=== PATIENT | female | born 1955 | race Caucasian/White ===

== ENCOUNTER 2019-03-07 16:12 | Inpatient (IN) | payer MEDICARE ==
--- NOTE | 2019-03-07 16:40 | ED ---
General Adult HPI - General Chief complaint: Chest Pain Stated complaint: Chest pain Time Seen by Provider: 03/07/19 16:17 Source: patient, RN/MD, EMS, RN notes reviewed, old records reviewed (Review chart and lab work and EKG from [facility].) Mode of arrival: EMS Limitations: no limitations - History of Present Illness Initial comments: Patient is a pleasant 63-year-old female presenting to the emergency Department with complaints of chest discomfort. Onset of symptoms was earlier today while doing laundry. Patient states discomfort was somewhat severe. Discomfort felt like pressure with radiation up towards the neck. Patient did feel short of breath. Symptoms have improved. No dyspnea at this time. Discomfort is currently mild rated 4/10. No associated nausea or diaphoresis. Patient did have similar symptoms once several years ago and was told it was related to having some water around her heart and was given water pills. No leg pain or leg swelling. Patient was given aspirin and nitroglycerin and morphine. - Related Data Home Medications Medication Instructions Recorded Confirmed Ascorbic Acid [Vitamin C] 500 mg PO DAILY 03/07/19 03/07/19 Calcium Carbonate [Calcium] 600 mg PO DAILY 03/07/19 03/07/19 Cholecalciferol (Vitamin D3) 2,000 unit PO DAILY 03/07/19 03/07/19 [Vitamin D3] Cyanocobalamin (Vitamin B-12) 1,000 mcg PO DAILY 03/07/19 03/07/19 [Vitamin B-12] FLUoxetine HCL 40 mg PO HS 03/07/19 03/07/19 Ferrous Sulfate [Feosol] 325 mg PO DAILY 03/07/19 03/07/19 Lisinopril [Prinivil] 5 mg PO DAILY 03/07/19 03/07/19 Lovastatin [Mevacor] 10 mg PO HS 03/07/19 03/07/19 Pantoprazole [Protonix] 40 mg PO DAILY 03/07/19 03/07/19 Warfarin Sodium [Coumadin] 4 mg PO SUTUTHSA 03/07/19 03/07/19 Warfarin [Coumadin] 3 mg PO MOWEFR 03/07/19 03/07/19 Allergies Allergy/AdvReac Type Severity Reaction Status Date / Time No Known Allergies Allergy Verified 03/07/19 16:39 Review of Systems ROS Statement: Those systems with pertinent positive or pertinent negative responses have been documented in the HPI. ROS Other: All systems not noted in ROS Statement are negative. Constitutional: Denies: fever Eyes: Denies: eye pain ENT: Denies: ear pain Respiratory: Denies: cough Cardiovascular: Reports: chest pain Endocrine: Denies: fatigue Gastrointestinal: Denies: abdominal pain Genitourinary: Denies: dysuria Musculoskeletal: Denies: back pain Skin: Denies: rash Neurological: Denies: weakness Past Medical History Past Medical History: GERD/Reflux, Hyperlipidemia, Hypertension Additional Past Medical History / Comment(s): PE History of Any Multi-Drug Resistant Organisms: None Reported Past Surgical History: Bariatric Surgery, Hysterectomy Additional Past Surgical History / Comment(s): gastric bypass Past Psychological History: No Psychological Hx Reported Smoking Status: Never smoker Past Alcohol Use History: None Reported Past Drug Use History: None Reported General Exam Limitations: no limitations General appearance: alert, in no apparent distress Head exam: Present: atraumatic Eye exam: Present: normal appearance, PERRL ENT exam: Present: normal oropharynx Neck exam: Present: normal inspection Respiratory exam: Present: normal lung sounds bilaterally. Absent: chest wall tenderness Cardiovascular Exam: Present: regular rate, normal rhythm Expanded Peripheral pulses: 2+: Radial (R), Radial (L), Posterior Tibialis (R), Posterior Tibialis (L) GI/Abdominal exam: Present: soft. Absent: distended, tenderness Extremities exam: Present: normal inspection. Absent: pedal edema, calf tenderness Neurological exam: Present: alert Psychiatric exam: Present: normal affect, normal mood Skin exam: Present: normal color Course Vital Signs 03/07/19 16:24 Temperature 98.5 F Pulse Rate 69 Respiratory 18 Rate Blood Pressure 149/85 O2 Sat by Pulse 95 Oximetry - Reevaluation(s) Reevaluation #1: 03/07/19 16:54 Case was discussed with Dr. Quinonez, covering with Dr. Pugh, who will admit, and for hospital call. Case was also discussed with Dr. Johnson with cardiology who will come evaluate. INR at 2.9 from [facility]. EKG Findings - EKG Comments: EKG Findings:: Normal sinus rhythm at 68. GA 166. QRS 98. QT 454. QTC 482. Left axis. LVH with repolarization change. There is some borderline lateral ST depression. Disposition Clinical Impression: Chest pain Disposition: ADMITTED IP TO THIS HOSP Is patient prescribed a controlled substance at d/c from ED?: No Referrals: Nonstaff,Physician [Primary Care Provider] - 1-2 days Decision Time: 16:56
[2019-03-07] MEDS ORDERED: NITROGLYCERIN SL TABS 0.4 MG TAB SUBLINGUAL PRN (16:50)
[2019-03-07] MEDS ORDERED: ASPIRIN 81 MG PO STA (16:50)
[2019-03-07] MEDS ORDERED: NITROGLYCERIN-D5W PMX 50 MG in DEXTROSE/WATER 1 250ML.BAG IV ONE (16:53)
[2019-03-07] MEDS ORDERED: HEPARIN SODIUM,PORCINE 5,000 UNIT/ML 1 ML VIAL IV PRN (17:32)
[2019-03-07] MEDS ORDERED: HEPARIN SOD,PORK IN 0.45% NACL 25,000 UNIT in 0.45% NACL 1 250ML.BAG IV SCH (17:45)
[2019-03-07] MEDS ORDERED: METOPROLOL TARTRATE 50 MG TAB PO STA (17:46)
[2019-03-07] MEDS ORDERED: ATORVASTATIN 80 MG TAB PO STA (17:46)
--- NOTE | 2019-03-07 17:59 | P.CRDCN ---
History of Present Illness Consult reason: non-Q-wave WA, chest pain History of present illness: This is Dr. Johnson dictating a consult on this patient The patient was interviewed and examined by me IMPRESSION / ASSESSMENT: Acute coronary syndrome likely non-Q-wave myocardial infarction. Pain began at 1 PM today with ordinary activities Typical chest discomfort consistent with angina midsternal spreading all over the chest and up into her neck, back single remaining, spreading into the arms, a little better after nitroglycerin. She continues to have mild chest discomfort She was transferred from an outside hospital and the EKG at that time showed ST depression in V2 to V6 lead 1 and aVL and in the inferior leads Hypertension Diabetes Surgery for obesity History of pulmonary emboli on Coumadin PLAN: Heparin without a bolus, hold Coumadin, only metoprolol, IV nitroglycerin, aspirin and atorvastatin [address] Rey We'll proceed with coronary angiography and possible intervention today HPI Patient was transferred from an outside hospital with chest discomfort radiating to the jaw and arms ECG showed ST depressions V2-V6, high lateral leads When she arrived here she was still having a lingering discomfort ECG was a bit better but showed similar findings She was short of breath when this began. Pain started with Staci activities, household activities Chest discomfort midsternal region to the jaw and then into the arms No palpitations no loss of consciousness ROS: No fever chills or rigors, no cough, phlegm or expectoration, no nausea, vomiting or diarrhea, no hematuria, dysuria, no musculoskeletal complaints, no strokes or seizures, no skin lesions. EXAMINATION: Blood pressure 148/84 mmHg pulse rate in the 70s, normal respirations, afebrile Breath sounds are clear no rhonchi no crackles Heart sounds S1 and S2 are normal no murmurs or gallops no rub No JVD no hepatojugular reflux Abdomen is soft nontender Extremity is warm no edema REVIEW OF LABS, ECG & MEDICAL DATA Labs pending Twelve-lead ECG shows ST depression with T-wave inversions across the precordium and high lateral leads Past Medical History Past Medical History: GERD/Reflux, Hyperlipidemia, Hypertension Additional Past Medical History / Comment(s): PE History of Any Multi-Drug Resistant Organisms: None Reported Past Surgical History: Bariatric Surgery, Hysterectomy Additional Past Surgical History / Comment(s): gastric bypass Past Psychological History: No Psychological Hx Reported Smoking Status: Never smoker Past Alcohol Use History: None Reported Past Drug Use History: None Reported Medications and Allergies Home Medications Medication Instructions Recorded Confirmed Type Ascorbic Acid [Vitamin C] 500 mg PO DAILY 03/07/19 03/07/19 History Calcium Carbonate [Calcium] 600 mg PO DAILY 03/07/19 03/07/19 History Cholecalciferol (Vitamin D3) 2,000 unit PO DAILY 03/07/19 03/07/19 History [Vitamin D3] Cyanocobalamin (Vitamin B-12) 1,000 mcg PO DAILY 03/07/19 03/07/19 History [Vitamin B-12] Ferrous Sulfate [Feosol] 325 mg PO DAILY 03/07/19 03/07/19 History Lisinopril [Prinivil] 5 mg PO DAILY 03/07/19 03/07/19 History Lovastatin [Mevacor] 10 mg PO HS 03/07/19 03/07/19 History Pantoprazole [Protonix] 40 mg PO DAILY 03/07/19 03/07/19 History RX: FLUoxetine HCL 40 mg PO HS 03/07/19 03/07/19 History Warfarin Sodium [Coumadin] 4 mg PO SUTUTHSA 03/07/19 03/07/19 History Warfarin [Coumadin] 3 mg PO MOWEFR 03/07/19 03/07/19 History Allergies Allergy/AdvReac Type Severity Reaction Status Date / Time No Known Allergies Allergy Verified 03/07/19 16:39 Physical Exam Vitals: Vital Signs Temp Pulse Resp BP Pulse Ox 03/07/19 17:30 66 16 159/90 80 L 03/07/19 17:20 69 9 L 159/90 97 03/07/19 17:10 70 11 L 159/90 97 03/07/19 17:00 72 17 148/84 97 03/07/19 16:50 70 15 148/84 96 03/07/19 16:40 62 16 148/84 97 03/07/19 16:30 55 L 16 150/81 97 03/07/19 16:24 98.5 F 69 18 149/85 95 03/07/19 16:20 149/85 94 L 03/07/19 16:16 92 L Intake and Output 03/07/19 03/07/19 03/07/19 06:59 14:59 22:59 Other: Weight 76.204 kg Results Current Medications Generic Name Dose Route Start Last Admin Trade Name Mary PRN Reason Stop Dose Admin Aspirin 325 mg 03/08/19 09:00 Aspirin PO DAILY PARISA Heparin Sodium (Porcine) 0 unit 03/07/19 17:32 Heparin IV PER PROTOCOL PRN Low PTT Protocol Nitroglycerin/Dextrose 50 mg/ 250 mls @ 1.5 mls/hr 03/07/19 16:53 03/07/19 17:35 IV Solution IV 03/08/19 16:52 5 mcg/min .Q24H ONE 1.5 mls/hr Administration Protocol 5 MCG/MIN Heparin Sodium/Sodium Chloride 250 mls @ 9.144 mls/hr 03/07/19 17:45 25,000 unit/ Sodium Chloride IV .Q24H PARISA Protocol 12 UNITS/KG/HR Nitroglycerin 0.4 mg 03/07/19 16:50 Nitrostat SUBLINGUAL Q5M PRN Chest Pain Sodium Chloride 10 ml 03/07/19 21:00 Saline Flush IV BID [facility] Intake and Output 03/07/19 03/07/19 03/07/19 06:59 14:59 22:59 Other: Weight 76.204 kg Patient Weight 03/08/19 06:59 Weight 76.204 kg
[2019-03-07] MEDS ORDERED: IV FLUID CONTINUATION 500 ML IV ONE (18:25)
[2019-03-07] MEDS ORDERED: LIDOCAINE 1% INJ 10MG/ML (20 ML MDV) SQ ONE (18:30)
[2019-03-07] MEDS: VERAPAMIL SYRINGE (5 MG/10 ML) INTRAARTER ONE ×2 (18:32→18:50)
[2019-03-07] MEDS ORDERED: NITROGLYCERIN SL TABS 0.4 MG TAB SUBLINGUAL ONE ×2 (18:43→18:44)
[2019-03-07] MEDS ORDERED: IOPAMIDOL-370 125ML BTL INJ ONE ×2 (18:49)
[2019-03-07] MEDS ORDERED: RX INFO: IV CONTRAST WAS GIVEN 1 EACH MISC MISCELLANE PRN (18:55)
[2019-03-07] MEDS ORDERED: SODIUM CHLORIDE 0.9% 1,000 ML IV SCH (19:00)
[2019-03-07] MEDS ORDERED: HYDROcodone/APAP 5-325MG 1 EACH TAB PO STA (21:26)
[2019-03-07] MEDS: FLUoxetine HCL 20 MG CAP PO SCH (21:47)
[2019-03-07] MEDS: ATORVASTATIN 40 MG TAB PO SCH (21:48)
--- NOTE | 2019-03-07 22:02 | CC ---
CARDIAC CATHETERIZATION REPORT DATE OF SERVICE: 03/07/2019 PERFORMING PHYSICIAN: Marcelo Rey M.D. PROCEDURES PERFORMED: 1. Selective right and left coronary angiogram. 2. Left ventriculography. INDICATION: This is a 63-year-old female patient who is visiting from [place] with a history of PE, currently on Coumadin. She presented to the emergency room complaining of chest discomfort and continues to have ongoing chest discomfort. In the emergency room she was seen by Dr. Johnson, who recommended proceeding with coronary angiogram in view of the ongoing chest pain. APPROACH: Right radial artery. COMPLICATIONS: None. LEVEL OF SEDATION: Moderate, with sedation length of 19 minutes. PROCEDURE DESCRIPTION: After obtaining informed consent, the patient was brought to the cardiac labor operator. The right radial artery was cannulated using micropuncture technique. The micropuncture wire passed easily. Then I placed a 6-[place] sheath in the right radial artery. After that I gave the patient 2 mg of verapamil IA. Selective right and left coronary angiogram was performed using JR4 and JL3.5 catheters. Left heart catheterization was performed using 5-[place] pigtail catheter. I did after that left ventriculography. The procedure was completed without any complication. SELECTIVE CORONARY ANGIOGRAM: 1. The right coronary artery is a large-caliber vessel. It is a dominant vessel and is angiographically normal. It bifurcates distally into PDA and PLV branches; both appeared to be angiographically normal. 2. The left main is angiographically normal. It bifurcates into left circumflex and left anterior descending artery. 3. The left circumflex is a large-caliber vessel. It is a nondominant vessel. The left circumflex is angiographically normal. In the mid portion it gives rise to a large OM branch which appeared to be angiographically normal. The circumflex continued after that as a moderate-caliber vessel in the AV groove. 4. The LAD is angiographically normal. In the proximal portion it gives rise to a large diagonal branch which bifurcates into 2 small branches and appeared to be angiographically normal. HEMODYNAMICS: The left ventricular end-diastolic pressure was 8 mmHg without significant gradient across the aortic valve. LEFT VENTRICULOGRAPHY: Left ventriculography was performed in the [place] projection and using a power injection. The left ventricular systolic function appeared to be normal with EF around 60% with normal wall motion. CONCLUSION: 1. Normal coronary angiogram. 2. Normal left ventricular end-diastolic pressure. 3. Normal left ventricular systolic function. MMODL / IJN: [id number] /
[2019-03-07 23:36] VITALS: RESP 16
[2019-03-08 05:17] LABS: Basophils % (A) 1 %; Eosinophils # (A) 0.1 k/uL (0-0.7); Eosinophils % (A) 2 %; HCT 36.7 % (34.0-46.0); HGB 11.6 gm/dL (11.4-16.0); Lymphocytes # (A) 0.9 k/uL (1.0-4.8); Lymphocytes % (A) 19 %; MCH 29.7 pg (25.0-35.0); MCHC 31.6 g/dL (31.0-37.0); MCV 94.2 fL (80.0-100.0); Monocytes # (A) 0.3 k/uL (0-1.0); Monocytes % (A) 7 %; Neutrophils # (A) 3.5 k/uL (1.3-7.7); Neutrophils % (A) 70 %; Platelet Count 192 k/uL (150-450)
[2019-03-08 05:24] LABS: Prothrombin Time 29.3 sec (9.0-12.0)
[2019-03-08 05:26] LABS: Cholesterol 151 mg/dL (<200); HDL Cholesterol 69 mg/dL (40-60); LDL Cholesterol,Calculated 68 mg/dL (0-99); Triglycerides 72 mg/dL (<150)
[2019-03-08] MEDS: ACETAMINOPHEN TAB 325 MG TAB PO PRN ×2 (05:31→23:26)
[2019-03-08] MEDS ORDERED: ASPIRIN 325 MG TAB PO SCH (09:00)
[2019-03-08 10:44] LABS: African American GFR (CKD) >90 (>60 ml/min/1.73 sqM); Anion Gap 4 mmol/L; Blood Urea Nitrogen 12 mg/dL (7-17); Calcium 8.5 mg/dL (8.4-10.2); Carbon Dioxide 32 mmol/L (22-30); Chloride 106 mmol/L (98-107); Glucose 79 mg/dL (74-99); Sodium 142 mmol/L (137-145)
[2019-03-08 10:51] LABS: Potassium 2.5 mmol/L (3.5-5.1)
[2019-03-08] MEDS ORDERED: Potassium Replacement Protocol 1 EACH MISC MISCELLANE PRN (11:03)
[2019-03-08] MEDS: POTASSIUM CHLORIDE ER 20 MEQ TAB.ER PO SCH ×3 (11:11→13:55)
--- NOTE | 2019-03-08 11:43 | P.HPIM ---
History of Present Illness Chief Complaint: Chest pain This very pleasant 63-year-old female comes to the ER with above-mentioned treatment. The patient said that she was doing laundry earlier yesterday when she suddenly started having chest discomfort which was severe. It felt more like pressure-like with radiation to her neck and the jaw and arms. She said that she has severe shortness of breath and she does came into the ER for further urology management. Patient otherwise did not complain of any cough, no abdominal pain, nausea and vomiting, or diarrhea constipation, no tingling no numbness of any of the extremities, no itch no rash. Next ER course-temperature 98.5 pulse 69 respiration 18 blood pressure 149/85 pulse ox 95%. Labwork done showed WBC 5.0 hemoglobin 11.6 platelets 192, troponins were very high at 3.1, 6.6 and 4.8 respectively. Patient already had a heart cath done which showed normal coronary angiogram normal left ventricular end- diastolic pressure and normal left ventricle systolic function. Status post p rocedure patient was admitted to the hospitalist service for further evaluation and management Review of Systems All systems: negative Past Medical History Past Medical History: GERD/Reflux, Hyperlipidemia, Hypertension Additional Past Medical History / Comment(s): PE. History of Any Multi-Drug Resistant Organisms: None Reported Past Surgical History: Bariatric Surgery, Hysterectomy, Joint Replacement Additional Past Surgical History / Comment(s): gastric bypass. cardiac cath. hip replacement Past Psychological History: No Psychological Hx Reported Smoking Status: Never smoker Past Alcohol Use History: None Reported Past Drug Use History: None Reported - Past Family History Mother Family Medical History: Cancer Father Family Medical History: Myocardial Infarction ([place]) Additional Family Medical History / Comment(s): aneurysm Medications and Allergies Home Medications Medication Instructions Recorded Confirmed Type Ascorbic Acid [Vitamin C] 500 mg PO DAILY 03/07/19 03/07/19 History Calcium Carbonate [Calcium] 600 mg PO DAILY 03/07/19 03/07/19 History Cholecalciferol (Vitamin D3) 2,000 unit PO DAILY 03/07/19 03/07/19 History [Vitamin D3] Cyanocobalamin (Vitamin B-12) 1,000 mcg PO DAILY 03/07/19 03/07/19 History [Vitamin B-12] FLUoxetine HCL 40 mg PO HS 03/07/19 03/07/19 History Ferrous Sulfate [Feosol] 325 mg PO DAILY 03/07/19 03/07/19 History Lisinopril [Prinivil] 5 mg PO DAILY 03/07/19 03/07/19 History Lovastatin [Mevacor] 10 mg PO HS 03/07/19 03/07/19 History Pantoprazole [Protonix] 40 mg PO DAILY 03/07/19 03/07/19 History Warfarin Sodium [Coumadin] 4 mg PO SUTUTHSA 03/07/19 03/07/19 History Warfarin [Coumadin] 3 mg PO MOWEFR 03/07/19 03/07/19 History Allergies Allergy/AdvReac Type Severity Reaction Status Date / Time No Known Allergies Allergy Verified 03/07/19 16:39 Physical Exam Vitals: Vital Signs Temp Pulse Pulse Pulse Resp BP BP 03/08/19 11:09 98.0 F 53 L 16 135/65 03/08/19 07:57 98.8 F 58 L 16 167/65 03/08/19 07:53 58 L 03/08/19 05:13 52 L 16 134/74 03/08/19 04:00 16 03/07/19 23:35 98.0 F 94 16 115/64 03/07/19 22:40 56 L 15 114/64 03/07/19 21:25 58 L 15 126/74 03/07/19 20:55 58 L 16 125/72 03/07/19 20:25 53 L 135/78 03/07/19 20:10 52 L 16 137/73 03/07/19 19:55 61 15 126/73 03/07/19 19:40 98.1 F 63 15 119/69 03/07/19 18:03 77 18 171/85 03/07/19 17:30 66 16 159/90 03/07/19 17:20 69 9 L 159/90 03/07/19 17:10 70 11 L 159/90 03/07/19 17:00 72 17 148/84 03/07/19 16:50 70 15 148/84 03/07/19 16:40 62 16 148/84 03/07/19 16:30 55 L 16 150/81 03/07/19 16:24 98.5 F 69 18 149/85 03/07/19 16:20 149/85 03/07/19 16:16 Pulse Ox 03/08/19 11:09 97 03/08/19 07:57 94 L 03/08/19 07:53 03/08/19 05:13 95 03/08/19 04:00 03/07/19 23:35 94 L 03/07/19 22:40 95 03/07/19 21:25 93 L 03/07/19 20:55 95 03/07/19 20:25 95 03/07/19 20:10 95 03/07/19 19:55 94 L 03/07/19 19:40 92 L 03/07/19 18:03 94 L 03/07/19 17:30 80 L 03/07/19 17:20 97 03/07/19 17:10 97 03/07/19 17:00 97 03/07/19 16:50 96 03/07/19 16:40 97 03/07/19 16:30 97 03/07/19 16:24 95 03/07/19 16:20 94 L 03/07/19 16:16 92 L Intake and Output 03/07/19 03/08/19 03/08/19 22:59 06:59 14:59 Intake Total 600 240 Balance 600 240 Intake: Intake, IV Titration 600 Amount Sodium Chloride 0.9% 1, 600 000 ml @ 75 mls/hr IV . [id number] [facility] Rx#:[id number] Oral 240 Other: # Voids 1 1 Weight 76.204 kg 68.9 kg On exam, alert and oriented x3. HEENT: Conjunctivae normal. eyes normal. NECK: No JVD. No thyroid enlargement. No LNs CARDIOVASCULAR: S1, S2 positive RESPIRATION: Breath sounds diminished in the bases. No rhonchi or crackles. No bronchial breathing. ABDOMEN: Soft, nontender . No guarding. no masses palpable. No ascites, No hepatosplenomegaly.Bowel sounds heard. LEGS: No edema. no swelling NERVOUS SYSTEM: Cranial N 2-12 grossly normal. Moves all 4 limbs. No focal deficits. No sensory deficit. No signs of cerebellar dysfucntion. Skin: no ulcer no rash Results CBC & Chem 7: 03/08/19 04:44 03/08/19 08:33 Labs: Abnormal Lab Results - Last 24 Hours (Table) 03/07/19 03/08/19 03/08/19 Range/Units 19:55 04:44 04:44 Lymphocytes # (1.0-4.8) k/uL PT (9.0-12.0) sec INR (<1.2) Potassium (3.5-5.1) mmol/L Carbon Dioxide (22-30) mmol/L Creatinine (0.52-1.04) mg/dL Troponin I 3.100 H* 6.600 H* (0.000-0.034) ng/mL HDL Cholesterol 69 H (40-60) mg/dL 03/08/19 03/08/19 03/08/19 Range/Units 04:44 04:44 08:33 Lymphocytes # 0.9 L (1.0-4.8) k/uL PT 29.3 H (9.0-12.0) sec INR 3.0 H (<1.2) Potassium (3.5-5.1) mmol/L Carbon Dioxide (22-30) mmol/L Creatinine (0.52-1.04) mg/dL Troponin I 4.800 H* (0.000-0.034) ng/mL HDL Cholesterol (40-60) mg/dL 03/08/19 Range/Units 08:33 Lymphocytes # (1.0-4.8) k/uL PT (9.0-12.0) sec INR (<1.2) Potassium 2.5 L* (3.5-5.1) mmol/L Carbon Dioxide 32 H (22-30) mmol/L Creatinine 0.45 L (0.52-1.04) mg/dL Troponin I (0.000-0.034) ng/mL HDL Cholesterol (40-60) mg/dL Thrombosis Risk Factor Assmnt - Choose All That Apply Each Factor Represents 1 point: Obesity (BMI >25) Each Risk Factor Represents 2 Points: Age 61-74 years Other congenital or acquired thrombophilia - If yes, enter type in comment: No Thrombosis Risk Factor Assessment Total Risk Factor Score: 3 Thrombosis Risk Factor Assessment Level: Moderate Risk Assessment and Plan Assessment: - Non-STEMI - Hypertension - Hyperlipidemia - GERD - History of PE on Coumadin Plan - Patient is admitted to selective unit on telemetry - We'll continue the current medications - We'll continue Coumadin - Cardiology following the patient - DVT and GI prophylaxis - We'll order for lab work in the morning - Expected length of stay is more than 2 midnights - Patient is full code Time with Patient: Greater than 30
--- NOTE | 2019-03-08 11:55 | ECHOF ---
Referral Reason:EF eval MEASUREMENTS -------- HEIGHT: 152.4 cm WEIGHT: 68.5 kg BP: 167/65 RVIDd: 3.3 cm (< 3.3) IVSd: 1.2 cm (0.6 - 1.1) LVIDd: 4.9 cm (3.9 - 5.3) LVPWd: 1.2 cm (0.6 - 1.1) IVSs: 1.6 cm LVIDs: 3.5 cm LVPWs: 1.5 cm LA Diam: 4.0 cm (2.7 - 3.8) LAESV Index (A-L): 31.19 ml/m Ao Diam: 3.1 cm (2.0 - 3.7) AV Cusp: 2.0 cm (1.5 - 2.6) MV EXCURSION: 14.642 mm (> 18.000) MV EF SLOPE: 55 mm/s (70 - 150) EPSS: 0.7 cm MV E Marciano: 0.91 m/s MV DecT: 200 ms MV A Marciano: 0.73 m/s MV E/A Ratio: 1.25 RAP: 15.00 mmHg RVSP: 45.70 mmHg FINDINGS -------- Sinus rhythm. This was a technically good study. The left ventricular size is normal. There is borderline concentric left ventricular hypertrophy. Overall left ventricular systolic function is normal with, an EF between 60 - 65 %. The right ventricle is mildly enlarged. LA is midly dilated 29-33ml/m2. The right atrium is normal in size. Interatrial and interventricular septum intact. There is mild aortic valve sclerosis. The mitral valve leaflets are mildly thickened. Mild mitral annular calcification present. Mild m itral regurgitation is present. Mild tricuspid regurgitation present. There is mild to moderate pulmonary hypertension. The right ventricular systolic pressure, as measured by Doppler, is 45.70mmHg. Trace/mild (physiologic) pulmonic regurgitation. The aortic root size is normal. Normal inferior vena cava with less than 50% inspiratory collapse consistent with estimated right atr ial pressure of 15 mmHg. There is no pericardial effusion. CONCLUSIONS -------- 1. Sinus rhythm. 2. This was a technically good study. 3. The left ventricular size is normal. 4. There is borderline concentric left ventricular hypertrophy. 5. Overall left ventricular systolic function is normal with, an EF between 60 - 65 %. 6. The right ventricle is mildly enlarged. 7. LA is midly dilated 29-33ml/m2. 8. The right atrium is normal in size. 9. Interatrial and interventricular septum intact. 10. There is mild aortic valve sclerosis. 11. The mitral valve leaflets are mildly thickened. 12. Mild mitral annular calcification present. 13. Mild mitral regurgitation is present. 14. Mild tricuspid regurgitation present. 15. There is mild to moderate pulmonary hypertension. 16. The right ventricular systolic pressure, as measured by Doppler, is 45.70mmHg. 17. Trace/mild (physiologic) pulmonic regurgitation. 18. The aortic root size is normal. 19. Normal inferior vena cava with less than 50% inspiratory collapse consistent with estimated right atrial pressure of 15 mmHg. 20. There is no pericardial effusion. SAFETY AND HEALTH MANAGER: Marti Resendiz RDCS
[2019-03-08] MEDS: CARVEDILOL 3.125 MG TAB PO SCH (17:01)
[2019-03-08] MEDS ORDERED: WARFARIN 2 MG TAB PO SCH (18:00)
--- NOTE | 2019-03-08 18:42 | P.PN ---
Subjective This is Dr. Johnson dictating a progress note on this patient The patient was interviewed and examined by me IMPRESSION / ASSESSMENT: Patient admitted with symptoms consistent with typical angina with significantly abnormal ECGs ECG from outside hospital showed ST depression with T-wave inversions V2-V6, high lateral leads and a subtle ST elevation in lead 3 Initial opinion of the posterior wall NM, which was quite appropriate However coronary arteries were completely normal raising the possibility of stress coronary myopathy versus myocarditis No antecedent viral infections Significant stressors at home and personal life However the 2-D echo shows preserved LV size and systolic function, no evidence for cardio myopathy, will send for viral titers Hypokalemia The ECG changes are fairly diffuse and involves at least 10 out of the 12 leads on the twelve-lead EKG PLAN: Viral titers for parvo viruses, coxsackievirus Continue beta blockers and lisinopril 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 Significant stress and personal life at this time No antecedent or recent viral illnesses EXAMINATION: Afebrile, pulse rate in the 50s, normal respirations, blood pressure 131/74 mmHg Breath sounds are clear no rhonchi no crackles Heart sounds S1 and S2 are normal no murmurs or gallops or rub Abdomen soft Extremities are warm no edema REVIEW OF LABS, ECG & MEDICAL DATA Troponins were 3.1, 6.6 and 4.8 Potassium 2.5 Renal function normal Total cholesterol 151, triglycerides 72, LDL 68 and HDL 69 Objective - Vital Signs Vital signs: Vital Signs Temp 98.0 F 03/08/19 11:09 Pulse 59 L 03/08/19 16:00 Resp 16 03/08/19 16:00 BP 131/74 03/08/19 16:00 Pulse Ox 99 03/08/19 16:00 Intake & Output 03/07/19 03/08/19 03/08/19 18:59 06:59 18:59 Intake Total 600 702 Balance 600 702 Weight 76.204 kg 68.9 kg Intake: Intake, IV Titration 600 Amount Sodium Chloride 0.9% 1, 600 000 ml @ 75 mls/hr IV . [id number] [facility] Rx#:[id number] Oral 702 Other: # Voids 1 2 - Labs CBC & Chem 7: 03/08/19 04:44 03/08/19 08:33 Labs: Abnormal Lab Results - Last 24 Hours (Table) 03/07/19 03/08/19 03/08/19 Range/Units 19:55 04:44 04:44 Lymphocytes # (1.0-4.8) k/uL PT (9.0-12.0) sec INR (<1.2) Potassium (3.5-5.1) mmol/L Carbon Dioxide (22-30) mmol/L Creatinine (0.52-1.04) mg/dL Troponin I 3.100 H* 6.600 H* (0.000-0.034) ng/mL HDL Cholesterol 69 H (40-60) mg/dL 03/08/19 03/08/19 03/08/19 Range/Units 04:44 04:44 08:33 Lymphocytes # 0.9 L (1.0-4.8) k/uL PT 29.3 H (9.0-12.0) sec INR 3.0 H (<1.2) Potassium (3.5-5.1) mmol/L Carbon Dioxide (22-30) mmol/L Creatinine (0.52-1.04) mg/dL Troponin I 4.800 H* (0.000-0.034) ng/mL HDL Cholesterol (40-60) mg/dL 03/08/19 Range/Units 08:33 Lymphocytes # (1.0-4.8) k/uL PT (9.0-12.0) sec INR (<1.2) Potassium 2.5 L* (3.5-5.1) mmol/L Carbon Dioxide 32 H (22-30) mmol/L Creatinine 0.45 L (0.52-1.04) mg/dL Troponin I (0.000-0.034) ng/mL HDL Cholesterol (40-60) mg/dL
[2019-03-08] MEDS ORDERED: FLUoxetine HCL 20 MG CAP PO SCH (21:00)
[2019-03-08] MEDS: ATORVASTATIN 40 MG TAB PO SCH (21:16)
[2019-03-08] MEDS: FLUoxetine HCL 20 MG CAP PO SCH (21:16)
[2019-03-09 06:26] LABS: Basophils % (A) 1 %; Eosinophils # (A) 0.1 k/uL (0-0.7); Eosinophils % (A) 2 %; HCT 37.3 % (34.0-46.0); HGB 12.6 gm/dL (11.4-16.0); Lymphocytes # (A) 0.8 k/uL (1.0-4.8); Lymphocytes % (A) 22 %; MCHC 33.6 g/dL (31.0-37.0); MCV 92.1 fL (80.0-100.0); Mean Platelet Volume 7.5; Monocytes # (A) 0.3 k/uL (0-1.0); Monocytes % (A) 7 %; Neutrophils # (A) 2.5 k/uL (1.3-7.7); Neutrophils % (A) 66 %; Platelet Count 202 k/uL (150-450); RBC 4.05 m/uL (3.80-5.40); WBC 3.8 k/uL (3.8-10.6)
[2019-03-09 06:30] LABS: INR 2.6 (<1.2); Prothrombin Time 25.2 sec (9.0-12.0)
[2019-03-09 06:35] LABS: African American GFR (CKD) >90 (>60 ml/min/1.73 sqM); Anion Gap 4 mmol/L; Blood Urea Nitrogen 9 mg/dL (7-17); Calcium 8.6 mg/dL (8.4-10.2); Carbon Dioxide 34 mmol/L (22-30); Chloride 106 mmol/L (98-107); Glucose 80 mg/dL (74-99); Magnesium 1.7 mg/dL (1.6-2.3); Potassium 3.1 mmol/L (3.5-5.1); Sodium 144 mmol/L (137-145)
[2019-03-09] MEDS: CARVEDILOL 3.125 MG TAB PO SCH ×2 (06:39→17:53)
[2019-03-09] MEDS ORDERED: ASPIRIN 81 MG PO SCH (09:00)
[2019-03-09 09:23] VITALS: TEMP 97.7
[2019-03-09] MEDS: POTASSIUM CHLORIDE ER 20 MEQ TAB.ER PO SCH ×4 (09:26→15:36)
[2019-03-09 11:30] VITALS: PULSE 55
[2019-03-09 11:31] VITALS: BP 162/85
--- NOTE | 2019-03-09 11:33 | P.PN ---
Subjective This very pleasant 63-year-old female comes to the ER with above-mentioned treatment. The patient said that she was doing laundry earlier yesterday when she suddenly started having chest discomfort which was severe. It felt more like pressure-like with radiation to her neck and the jaw and arms. She said that she has severe shortness of breath and she does came into the ER for further urology management. Patient otherwise did not complain of any cough, no abdominal pain, nausea and vomiting, or diarrhea constipation, no tingling no numbness of any of the extremities, no itch no rash. Next ER course-temperature 98.5 pulse 69 respiration 18 blood pressure 149/85 pulse ox 95%. Labwork done showed WBC 5.0 hemoglobin 11.6 platelets 192, troponins were very high at 3.1, 6.6 and 4.8 respectively. Patient already had a heart cath done which showed normal coronary angiogram normal left ventricular end- diastolic pressure and normal left ventricle systolic function. Status post procedure patient was admitted to the hospitalist service for further evaluation and management 03/09/2019 Patient complaining of pain in her left calf No chest pain or racing heart, no cough no shortness of breath No abdominal pain, nausea and vomiting, or diarrhea constipation Objective - Vital Signs Vital signs: Vital Signs Temp 97.7 F 03/09/19 08:35 Pulse 55 L 03/09/19 11:20 Resp 16 03/09/19 11:20 BP 171/79 03/09/19 11:20 Pulse Ox 97 03/09/19 11:20 Intake & Output 03/08/19 03/09/19 03/09/19 18:59 06:59 18:59 Intake Total 702 240 Balance 702 240 Weight 68.1 kg Intake: Oral 702 240 Other: # Voids 2 2 - Exam On exam, alert and oriented x3. HEENT: Conjunctivae normal. eyes normal. NECK: No JVD. No thyroid enlargement. No LNs CARDIOVASCULAR: S1, S2 positive RESPIRATION: Breath sounds diminished in the bases. No rhonchi or crackles. No bronchial breathing. ABDOMEN: Soft, nontender . No guarding. no masses palpable. No ascites, No hepatosplenomegaly.Bowel sounds heard. LEGS: No edema. no swelling NERVOUS SYSTEM: Cranial N 2-12 grossly normal. Moves all 4 limbs. No focal deficits. No sensory deficit. No signs of cerebellar dysfucntion. Skin: no ulcer no rash - Labs CBC & Chem 7: 03/09/19 05:53 03/09/19 05:53 Labs: Abnormal Lab Results - Last 24 Hours (Table) 03/09/19 03/09/19 03/09/19 Range/Units 05:53 05:53 05:53 Lymphocytes # 0.8 L (1.0-4.8) k/uL PT 25.2 H (9.0-12.0) sec INR 2.6 H (<1.2) Potassium 3.1 L (3.5-5.1) mmol/L Carbon Dioxide 34 H (22-30) mmol/L Creatinine 0.44 L (0.52-1.04) mg/dL Assessment and Plan Assessment: - Non-STEMI - HypOkalemia - Hypertension - Hyperlipidemia - GERD - History of PE on Coumadin Plan 03/08/2019 - Patient is admitted to selective unit on telemetry - We'll continue the current medications - We'll continue Coumadin - Cardiology following the patient - DVT and GI prophylaxis - We'll order for lab work in the morning - Expected length of stay is more than 2 midnights - Patient is full code 03/09/2019 - We will order for ultrasound of the left lower extremity to rule out DVT. Low probability as she is on Coumadin - Continue current medications. Spironolactone admitted yesterday - Hypertension was still low this morning. She is on adequate replacement protocoL - We'll check labs in the morning and - We'll continue to monitor
[2019-03-09] MEDS ORDERED: LISINOPRIL 5 MG TAB PO SCH (13:00)
--- NOTE | 2019-03-09 14:15 | US ---
EXAMINATION TYPE: US venous doppler duplex LE LT DATE OF EXAM: 03/09/2019 10:38 AM COMPARISON: NONE CLINICAL HISTORY: pain in the left calf. Hx DVT in left leg x 20 years ago. Calf pain. On coumadin. SIDE PERFORMED: dLeft TECHNIQUE: The lower extremity deep venous system is examined utilizing real time linear array sonog cristy with graded compression, doppler sonography and color-flow sonography. VESSELS IMAGED: External Iliac Vein (EIV) Common Femoral Vein Deep Femoral Vein Greater Saphenous Vein * Femoral Vein Popliteal Vein Small Saphenous Vein *- not visualized Proximal Calf Veins (* superficial vessels) Left Leg: Negative for DVT IMPRESSION: 1. Left lower extremity ultrasound negative for deep venous thrombosis.
--- NOTE | 2019-03-09 15:07 | P.PN ---
Subjective This is Dominique Domingo PA-C dictating a progress note on this patient The patient was interviewed and examined by me as well as by Dr. Johnson Case discussed with Dr. Johnson and he agrees with the plan of care IMPRESSION / ASSESSMENT: Myocardial injury, elevated troponins and abnormal EKG, normal coronary arteries on cath, LV function normal, typical anginal symptoms that have resolved, possible viral myocarditis, awaiting viral titers Hypertension, blood pressure elevated History of diabetes, off medications since bariatric surgery PLAN: Request records from [facility] in [facility], request EKG for a baseline May go home on beta blockers and spironolactone Decrease atorvastatin to 20 mg daily Increase lisinopril to 10 mg daily and maximize as needed Follow-up outpatient for further evaluation HPI/interval history Patient is a 63-year-old female with a past medical history of hypertension, dyslipidemia, diabetes who presented with typical chest pain. Her EKG showed T- wave inversions in V2 through V6, high lateral leads, and septal ST elevation in lead 3. Troponins were elevated. She underwent coronary angiography which showed normal coronary arteries. He was initially thought to have stress cardiomyopathy, however Echocardiogram showed normal LV function. Her pain has completely resolved. She denies any chest pain, palpitations, shortness of breath, nausea, vomiting, diaphoresis, orthopnea, PND, lower extremity edema EXAMINATION Patient is afebrile, pulse 72, respirations 16, blood pressure 160/94, oxygen saturation 98% on room air Patient seen and examined sitting in her chair, appears comfortable Lungs clear to auscultation bilaterally, no wheezing, rhonchi, or crackles a ppreciated Heart sounds are regular rate and rhythm, very soft systolic flow murmur appreciated No elevated JVD No lower extremity edema REVIEW OF LABS, ECG For viral titers, parvovirus and coxsackie WBC 3.8, hemoglobin 12.6, potassium 3.1, BUN 9, creatinine 0.44 Objective - Vital Signs Vital signs: Vital Signs Temp 97.7 F 03/09/19 08:35 Pulse 55 L 03/09/19 11:20 Resp 16 03/09/19 11:20 BP 171/79 03/09/19 11:20 Pulse Ox 97 03/09/19 11:20 Intake & Output 03/08/19 03/09/19 03/09/19 18:59 06:59 18:59 Intake Total 702 240 0 Balance 702 240 0 Weight 68.1 kg Intake: Oral 702 240 0 Other: # Voids 2 2 3 - Labs CBC & Chem 7: 03/09/19 05:53 03/09/19 12:16 Labs: Abnormal Lab Results - Last 24 Hours (Table) 03/09/19 03/09/19 03/09/19 Range/Units 05:53 05:53 05:53 Lymphocytes # 0.8 L (1.0-4.8) k/uL PT 25.2 H (9.0-12.0) sec INR 2.6 H (<1.2) Potassium 3.1 L (3.5-5.1) mmol/L Carbon Dioxide 34 H (22-30) mmol/L Creatinine 0.44 L (0.52-1.04) mg/dL 03/09/19 Range/Units 12:16 Lymphocytes # (1.0-4.8) k/uL PT (9.0-12.0) sec INR (<1.2) Potassium 3.4 L (3.5-5.1) mmol/L Carbon Dioxide (22-30) mmol/L Creatinine (0.52-1.04) mg/dL
[2019-03-09] MEDS ORDERED: WARFARIN 3 MG TAB PO SCH ×2 (18:00)
[2019-03-10] MEDS ORDERED: LISINOPRIL 10 MG TAB PO SCH (09:00)
[2019-03-10] MEDS ORDERED: ATORVASTATIN 20 MG TAB PO SCH (09:00)
[2019-03-10 12:06] LABS: Parvovirus B-19 IgG Antibodies 4.32 INDEX (<=0.90); Parvovirus B-19 IgM Antibodies 0.14 INDEX (<=0.90)
--- NOTE | 2019-03-11 22:28 | P.DS ---
Providers Date of admission: 03/07/19 16:50 Expected date of discharge: 03/09/19 Attending physician: Benito Ritchie MD Consults: 03/07/19 16:50 Consult Physician Urgent Consulting Provider: Nick Johnson Consult Reason/Comments: chest pain Do you want consulting provider notified?: Yes Primary care physician: Physician Nonstaff Hospital Course: Discharge diagnosis: - Non-STEMI - HypOkalemia - Hypertension - Hyperlipidemia - GERD - History of PE on Coumadin Hospital course : This very pleasant 63-year-old female comes to the ER with above-mentioned treatment. The patient said that she was doing laundry earlier yesterday when she suddenly started having chest discomfort which was severe. It felt more like pressure-like with radiation to her neck and the jaw and arms. She said that she has severe shortness of breath and she does came into the ER for further urology management. Patient otherwise did not complain of any cough, no abdominal pain, nausea and vomiting, or diarrhea constipation, no tingling no numbness of any of the extremities, no itch no rash. Next ER course-temperature 98.5 pulse 69 respiration 18 blood pressure 149/85 pulse ox 95%. Labwork done showed WBC 5.0 hemoglobin 11.6 platelets 192, troponins were very high at 3.1, 6.6 and 4.8 respectively. Patient already had a heart cath done which showed normal coronary angiogram normal left ventricular end- diastolic pressure and normal left ventricle systolic function. Status post procedure patient was admitted to the hospitalist service for further evaluation and management 03/08/2019 - Patient is admitted to selective unit on telemetry - We'll continue the current medications, Medical management recommended.Pls refer to the progress note for the physical exam - We'll continue Coumadin - Cardiology following the patient - DVT and GI prophylaxis - We'll order for lab work in the morning - Expected length of stay is more than 2 midnights - Patient is full code 03/09/2019 - We will order for ultrasound of the left lower extremity to rule out DVT. Low probability as she is on Coumadin - Continue current medications. Spironolactone admitted yesterday - Hypertension was still low this morning. She is on adequate replacement protocoL - We'll check labs in the morning and - We'll continue to monitor Please refer to the progress not for physical exam The patient was cleared by cardiology to be dced She is to f/u with cardio after discharge on the date alloted by cardio The patient will need to f/u with PCP post dc. Plan - Discharge Summary Discharge Rx Participant: No New Discharge Prescriptions: New Carvedilol [Coreg] 3.125 mg PO BID-W/MEALS #60 tab Atorvastatin [Lipitor] 20 mg PO DAILY #30 tab Spironolactone 25 mg PO DAILY #30 tablet Lisinopril [Zestril] 10 mg PO DAILY #30 tab Continue Warfarin [Coumadin] 3 mg PO MOWEFR Ferrous Sulfate [Iron (65 MG Elemental)] 325 mg PO DAILY Cyanocobalamin (Vitamin B-12) [Vitamin B-12] 1,000 mcg PO DAILY Cholecalciferol (Vitamin D3) [Vitamin D3] 2,000 unit PO DAILY Calcium Carbonate [Calcium] 600 mg PO DAILY Pantoprazole [Protonix] 40 mg PO DAILY FLUoxetine HCL 40 mg PO HS Ascorbic Acid [Vitamin C] 500 mg PO DAILY Warfarin Sodium [Coumadin] 4 mg PO SUTUTHSA Discontinued Lovastatin [Mevacor] 10 mg PO HS Lisinopril [Prinivil] 5 mg PO DAILY Discharge Medication List Ascorbic Acid [Vitamin C] 500 mg PO DAILY 03/07/19 [History] Calcium Carbonate [Calcium] 600 mg PO DAILY 03/07/19 [History] Cholecalciferol (Vitamin D3) [Vitamin D3] 2,000 unit PO DAILY 03/07/19 [History] Cyanocobalamin (Vitamin B-12) [Vitamin B-12] 1,000 mcg PO DAILY 03/07/19 [History] FLUoxetine HCL 40 mg PO HS 03/07/19 [History] Ferrous Sulfate [Iron (65 MG Elemental)] 325 mg PO DAILY 03/07/19 [History] Pantoprazole [Protonix] 40 mg PO DAILY 03/07/19 [History] Warfarin Sodium [Coumadin] 4 mg PO SUTUTHSA 03/07/19 [History] Warfarin [Coumadin] 3 mg PO MOWEFR 03/07/19 [History] Atorvastatin [Lipitor] 20 mg PO DAILY #30 tab 03/09/19 [Rx] Carvedilol [Coreg] 3.125 mg PO BID-W/MEALS #60 tab 03/09/19 [Rx] Lisinopril [Zestril] 10 mg PO DAILY #30 tab 03/09/19 [Rx] Spironolactone 25 mg PO DAILY #30 tablet 03/09/19 [Rx] Follow up Appointment(s)/Referral(s): Nick Johnson MD [STAFF PHYSICIAN] - 03/18/19 9:00 am (Thursday with Paula) Nonstaff,Physician [Primary Care Provider] - 1-2 days (Please find and schedule an appointment with a primary care physician) Patient Instructions/Handouts: *Surgery [facility] - After Heart Catheterization - Third Rigger Instructions, Left Heart Catheterization (DC) Activity/Diet/Wound Care/Special Instructions: Prescriptions given for labs-BMP in 2 days and BMP in 1 week Increased chest pain, racing heart, any cough shortness with any headache, loss of vision or blurry vision any lightheadedness or dizziness please come to the ER call 911 Discharge Disposition: HOME SELF-CARE
[2019-03-15 18:37] LABS: Echovirus AB Type 11 <1:10 (<1:10); Echovirus AB Type 6 <1:10 (<1:10); Echovirus AB Type 7 <1:10 (<1:10)
== END 2019-03-09 18:40 | disposition home or self-care (01) | DRG 282 ==
LOC: SUPCPDRO 16:12 → EC 16:12 → 3SCARD 16:50
PROVIDERS: ADMIT Internal Medicine; ATTEND Internal Medicine
PROC: B2111ZZ Fluoroscopy of Multiple Coronary Arteries using Low Osmolar Contrast (ICD-10-PCS; principal; 2019-03-07 18:09)
PROC: B2161ZZ Fluoroscopy of Right and Left Heart using Low Osmolar Contrast (ICD-10-PCS; principal; 2019-03-07 18:09)
DX: I21.4 Non-ST elevation (NSTEMI) myocardial infarction (principal); I20.9 Angina pectoris, unspecified; E11.9 Type 2 diabetes mellitus without complications; I10 Essential (primary) hypertension; E66.9 Obesity, unspecified; E78.5 Hyperlipidemia, unspecified; E87.6 Hypokalemia; Z96.649 Presence of unspecified artificial hip joint; K21.9 Gastro-esophageal reflux disease without esophagitis; Z79.01 Long term (current) use of anticoagulants; Z79.899 Other long term (current) drug therapy; Z82.49 Family history of ischemic heart disease and other diseases of the circulatory system; Z86.711 Personal history of pulmonary embolism; Z90.710 Acquired absence of both cervix and uterus; Z98.84 Bariatric surgery status; Z80.9 Family history of malignant neoplasm, unspecified
CPT/HCPCS: 80048; 80061; 83735; 84132; 84484; 85025; 85610; 86658; 86747; 93005; 93306; 93458; 96365; 99285